=== PATIENT | male | born 1955 | race Caucasian/White ===

== ENCOUNTER 2017-11-11 08:08 | Day surgery (SDC) | payer BC ==
[2017-11-11] MEDS ORDERED: MIDAZOLAM 1 MG/ML 2 ML INJ ×2 (11:23)
[2017-11-11] MEDS ORDERED: FENTAnyl 50 MCG/ML VIAL (11:24)
== END 2017-11-11 15:40 | disposition home or self-care (01) ==
LOC: GIL 08:08
DX: Z12.11 Encounter for screening for malignant neoplasm of colon (principal); D12.6 Benign neoplasm of colon, unspecified; K64.9 Unspecified hemorrhoids
CPT/HCPCS: 45385; 88305